=== PATIENT | female | born 1985 | race African-American/Black ===

== ENCOUNTER 2018-01-06 18:38 | Inpatient (IN) | payer OTHER, MEDICARE ==
[~2018-01-06] VITALS: Ht 157.5 cm; Wt 60.3 kg
[2018-01-06 18:52] VITALS: BP 126/74; O2SAT 100
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
[2018-01-06] MEDS ORDERED: SODIUM CHLOR 0.9% 1000 ML INJ 1,000 ML IV ONE (19:45)
[2018-01-06] MEDS ORDERED: LABETALOL HCL 100 MG/20 ML VIAL IV PUSH ONE ×2 (19:45→20:45)
[2018-01-06 20:00] VITALS: BP 117/62; PULSE 158; RESP 16; O2SAT 100
[2018-01-06 20:15] VITALS: PULSE 138
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
[2018-01-06 20:29] LABS: AUTOMATED NEUTROPHIL # 4.2 TH/MM3 (1.8-7.7); BASOPHIL % 0.9 % (0.0-2.0); HEMATOCRIT 31.6 % (35.0-46.0); HEMOGLOBIN 10.8 GM/DL (11.6-15.3); LYMPHOCYTE # 0.5 TH/MM3 (1.0-4.8); MEAN CELL VOLUME 99.9 FL (80.0-100.0); MEAN CORPUSCULAR HEMOGLOBIN 34.2 PG (27.0-34.0); MEAN CORPUSCULAR HGB CONC 34.3 % (32.0-36.0); MONO % 1.9 % (0.0-8.0); MONOCYTE # 0.1 TH/MM3 (0-0.9); NEUT % 87.2 % (16.0-70.0); PLATELET COUNT 296 TH/MM3 (150-450); RED BLOOD COUNT 3.16 MIL/MM3 (4.00-5.30); RED CELL DISTRIBUTION WIDTH 16.6 % (11.6-17.2); WHITE BLOOD COUNT 4.8 TH/MM3 (4.0-11.0)
[2018-01-06 20:35] LABS: ALBUMIN 3.2 GM/DL (3.4-5.0); AST (GOT) 28 U/L (15-37); BICARBONATE 20.7 MEQ/L (21.0-32.0); BLOOD UREA NITROGEN 57 MG/DL (7-18); CALCIUM 8.9 MG/DL (8.5-10.1); CHLORIDE 107 MEQ/L (98-107); CREATININE 3.85 MG/DL (0.50-1.00); GLOMERULAR FILTRATION RATE 16 ML/MIN (>89); GLUCOSE,RANDOM 187 MG/DL (74-106); MAGNESIUM 1.5 MG/DL (1.5-2.5); SODIUM (NA) 138 MEQ/L (136-145)
[2018-01-06 20:36] LABS: ALT (GPT) 28 U/L (10-53)
[2018-01-06 20:40] LABS: INTERNATIONAL NORMALIZED RATIO 1.1 RATIO; PROTHROMBIN TIME - PATIENT 11.3 SEC (9.8-11.6)
[2018-01-06 20:45] LABS: ALKALINE PHOSPHATASE 64 U/L (45-117); TOTAL BILIRUBIN ADULT 0.7 MG/DL (0.2-1.0); TOTAL PROTEIN 7.6 GM/DL (6.4-8.2); TROPONIN I LESS THAN 0.02 NG/ML (0.02-0.05)
[2018-01-06 21:07] LABS: CORRECTED NUCLEATED RBC 3 /100 WBC (0-0); LYMPHOCYTES 7 % (9-44); MONOCYTES 3 % (0-8); NEUTROPHIL # MANUAL DIFF 4.3 TH/MM3 (1.8-7.7); NUCLEATED RED BLOOD CELL 3 (0-0); POLYS (SEG NEUTROPHILS) 90 % (16-70)
[2018-01-06 21:23] VITALS: PULSE 133
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
[2018-01-06] MEDS ORDERED: MAGNESIUM HYDROXIDE SUSP 30 ML CUP PO PRN (21:30)
[2018-01-06] MEDS ORDERED: ACETAMINOPHEN 325 MG TAB PO PRN (21:30)
[2018-01-06] MEDS ORDERED: SODIUM CHLORIDE 0.9% FLUSH 10 ML FLUSH IV FLUSH PRN (21:30)
[2018-01-06] MEDS ORDERED: SENNOSIDES 8.6 MG TAB PO PRN (21:30)
[2018-01-06] MEDS ORDERED: MORPHINE SULFATE 2 MG/ML SYRINGE IV PUSH PRN (21:30)
[2018-01-06] MEDS ORDERED: BISACODYL 10 MG SUPP RECTAL PRN (21:30)
[2018-01-06] MEDS ORDERED: METOCLOPRAMIDE HCL 10 MG/2 ML VIAL IV PUSH PRN (21:30)
[2018-01-06] MEDS ORDERED: LACTULOSE SYRUP 20 GM/30 ML CUP PO PRN (21:30)
[2018-01-06] MEDS ORDERED: PLAQ200T PO (21:35)
[2018-01-06] MEDS ORDERED: CALC0.25 PO (21:35)
[2018-01-06] MEDS ORDERED: LIPI40TA PO (21:35)
[2018-01-06] MEDS ORDERED: FAMO1TAB37 PO (21:35)
[2018-01-06] MEDS ORDERED: LOSA100T2 PO (21:35)
[2018-01-06] MEDS ORDERED: SPIR25 PO (21:35)
[2018-01-06] MEDS ORDERED: PRED5TAB PO (21:35)
[2018-01-06] MEDS ORDERED: IMUR50TA5 PO (21:35)
[2018-01-06 21:59] VITALS: BP 117/62; PULSE 132; RESP 16
[2018-01-06] MEDS: ESMOLOL DRIP INJ PREMIX 250 ML IV PRN (22:20)
[2018-01-06] MEDS: SODIUM CHLOR 0.9% 1000 ML INJ 1,000 ML IV SCH (22:21)
[2018-01-06 22:27] LABS: ACETAMINOPHEN LESS THAN 2.0 MCG/ML (10.0-30.0)
[2018-01-07] VITALS (12 sets, daily range): BP systolic 102–128; BP diastolic 57–78; PULSE 69–126; RESP 12–20; TEMP 97.8–98.4; O2SAT 99–100
[2018-01-07 00:43] LABS: BACTERIA, URINE RARE /hpf; BILIRUBIN, URINE NEG (NEG); BLOOD, URINE NEG (NEG); GLUCOSE,URINE NEG (NEG); KETONE, URINE NEG (NEG); NITRITE,URINE NEG (NEG); SQUAMOUS EPITHELIAL CELL URINE 2 /hpf (0-5); URINE COLOR YELLOW (YELLW/STRAW); URINE LEUKOCYTE ESTERASE NEG (NEG)
[2018-01-07] MEDS ORDERED: CHLORHEXIDINE GLUCONATE 2 % 1 PACK (2 CLOTHS)(extra cloths) TOPICAL PRN (01:45)
[2018-01-07] MEDS: SODIUM CHLOR 0.9% 1000 ML INJ 1,000 ML IV SCH (02:17)
[2018-01-07] MEDS: CHLORHEXIDINE GLUCONATE 2 % 1 PACK (2 CLOTHS)(taper/protocol) TOPICAL SCH (03:25)
[2018-01-07] MEDS: ESMOLOL DRIP INJ PREMIX 250 ML IV PRN ×2 (03:34→08:16)
[2018-01-07] MEDS ORDERED: METOPROLOL TARTRATE 5 MG/5 ML VIAL IV PUSH PRN (04:00)
[2018-01-07 07:11] LABS: GLOMERULAR FILTRATION RATE 18 ML/MIN (>89)
[2018-01-07 07:22] LABS: ALBUMIN 2.6 GM/DL (3.4-5.0); ALKALINE PHOSPHATASE 56 U/L (45-117); ALT (GPT) 20 U/L (10-53); AST (GOT) 18 U/L (15-37); BICARBONATE 22.4 MEQ/L (21.0-32.0); BLOOD UREA NITROGEN 53 MG/DL (7-18); CALCIUM 8.1 MG/DL (8.5-10.1); CHLORIDE 116 MEQ/L (98-107); CREATININE 3.46 MG/DL (0.50-1.00); GLUCOSE,RANDOM 149 MG/DL (74-106); SODIUM (NA) 146 MEQ/L (136-145); TOTAL BILIRUBIN ADULT 0.5 MG/DL (0.2-1.0); TOTAL PROTEIN 5.8 GM/DL (6.4-8.2); TROPONIN I 0.03 NG/ML (0.02-0.05)
[2018-01-07] MEDS: DOCUSATE SODIUM 50 MG/SENNA 8.6 MG TAB PO SCH ×2 (08:15→21:00)
[2018-01-07] MEDS: predniSONE 5 MG TAB PO SCH (08:15)
[2018-01-07] MEDS: SODIUM CHLORIDE 0.9% FLUSH 10 ML FLUSH IV FLUSH SCH ×2 (09:00→22:15)
[2018-01-07] MEDS: HYDROXYCHLOROQUINE SULFATE 200 MG TAB PO SCH (09:00)
[2018-01-07 09:48] LABS: BASOPHIL % 0.2 % (0.0-2.0); EOSINOPHIL % 0.4 % (0.0-4.0); HEMATOCRIT 24.1 % (35.0-46.0); LYMPH % 18.6 % (9.0-44.0); LYMPHOCYTE # 1.6 TH/MM3 (1.0-4.8); MEAN CELL VOLUME 105.6 FL (80.0-100.0); MEAN CORPUSCULAR HGB CONC 35.1 % (32.0-36.0); MEAN PLATELET VOLUME 8.1 FL (7.0-11.0); MONO % 9.3 % (0.0-8.0); MONOCYTE # 0.8 TH/MM3 (0-0.9); NEUT % 71.5 % (16.0-70.0); PLATELET COUNT 248 TH/MM3 (150-450); RED BLOOD COUNT 2.28 MIL/MM3 (4.00-5.30); RED CELL DISTRIBUTION WIDTH 16.6 % (11.6-17.2); WHITE BLOOD COUNT 8.3 TH/MM3 (4.0-11.0)
[2018-01-07 09:51] LABS: HEMOGLOBIN 8.5 GM/DL (11.6-15.3)
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
[2018-01-07] MEDS: azaTHIOprine 50 MG TAB PO SCH (10:37)
[2018-01-07] MEDS: CALCITRIOL 0.25 MCG CAP PO SCH (10:37)
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
[2018-01-07] MEDS: LOSARTAN 50 MG TAB PO SCH (11:15)
--- NOTE | 2018-01-07 13:41 | EKG ---
Date Performed: 01/06/2018 Time Performed: 18:59:23 PTAGE: 32 years EKG: SUPRAVENTRICULAR TACHYCARDIA RATE 148 POOR INITIAL ANTERIOR FORCES, MAY BE NORMAL VARIANT C LINICAL CORRELATION RECOMMENDED. ABNORMAL ECG NO PREVIOUS TRACING DOCTOR: Slade Moreno Interpretating Date/Time 01/07/2018 13:39:53
--- NOTE | 2018-01-07 14:37 | ECHRPT ---
Indication: ATRIAL FIB CONCLUSIONS The left ventricular systolic function is normal with an estimated ejection fraction in the range of 60-65%. Normal left ventricular size. Wall thickness is normal. Trace mitral valve regurgitation. There is trace tricuspid valve regurgitation. The estimated pulmonary arterial pressure is 38.1 mmHg. BP: 114 / 66 HR: 82 Rhythm: Sinus MEASUREMENTS (Male / Female) Normal Values Technical Quality:Good 2D ECHO LV Diastolic Diameter PLAX 4.1 cm 4.2 - 5.9 / 3.9 - 5.3 cm LV Systolic Diameter PLAX 2.9 cm IVS Diastolic Thickness 1.0 cm 0.6 - 1.0 / 0.6 - 0.9 cm LVPW Diastolic Thickness 1.0 cm 0.6 - 1.0 / 0.6 - 0.9 cm LV Relative Wall Thickness 0.5 RV Internal Dim ED PLAX 2.8 cm LVOT Diameter 2.0 cm LA Systolic Diameter LX 3.1 cm 3.0 - 4.0 / 2.7 - 3.8 cm LV Ejection Fraction MOD 4C 63.6 % LV Cardiac Index MOD 4C 2968.3 cm/minm LV Ejection Fraction 4C AL 64.6 % LV Cardiac Index 4C AL 3100.0 cm/minm M-MODE Aortic Root Diameter MM 2.0 cm LA Systolic Diameter MM 3.5 cm LA Ao Ratio MM 1.8 AV Cusp Separation MM 2.0 cm DOPPLER AV Peak Velocity 115.0 cm/s AV Peak Gradient 5.3 mmHg LVOT Peak Velocity 99.2 cm/s LVOT Peak Gradient 3.9 mmHg AV Area Cont Eq pk 2.7 cm MV Area PHT 3.3 cm Mitral E Point Velocity 99.7 cm/s Mitral A Point Velocity 58.7 cm/s Mitral E to A Ratio 1.7 LV E' Lateral Velocity 10.6 cm/s Mitral E to LV E' Lateral Ratio 9.4 LV E' Septal Velocity 10.2 cm/s Mitral E to LV E' Septal Ratio 9.8 TR Peak Velocity 265.0 cm/s TR Peak Gradient 28.1 mmHg Right Atrial Pressure 10.0 mmHg Pulmonary Artery Systolic Pressu 38.1 mmHg Right Ventricular Systolic Press 38.1 mmHg PV Peak Velocity 95.0 cm/s PV Peak Gradient 3.6 mmHg FINDINGS LEFT VENTRICLE The left ventricular systolic function is normal with an estimated ejection fraction in the range of 60-65%. Normal left ventricular size. Wall thickness is normal. RIGHT VENTRICLE Normal right ventricular size and systolic function. LEFT ATRIUM The left atrial size is normal. RIGHT ATRIUM The right atrial size is normal. ATRIAL SEPTUM Normal atrial septal thickness without atrial level shunting by limited color doppler interrogation. AORTA The aortic root and proximal ascending aorta are normal in size on limited imaging. MITRAL VALVE Structurally normal mitral valve. Trace mitral valve regurgitation. AORTIC VALVE Trileaflet aortic valve. No aortic valve stenosis or regurgitation. TRICUSPID VALVE Structurally normal tricuspid valve. There is trace tricuspid valve regurgitation. The estimated pulmonary arterial pressure is 38.1 mmHg. PULMONARY VALVE No pulmonary valve regurgitation or stenosis. VESSELS The inferior vena cava is normal in size. PERICARDIUM No pericardial effusion. Hiro Tovar MD, FACC (Electronically Signed) Final Date:07 Jan 2018 14:36
[2018-01-07] MEDS: ACETAMINOPHEN/HYDROcodone 325 MG/5 MG TAB PO PRN (15:08)
[2018-01-07] MEDS: ATORVASTATIN 40 MG TAB PO SCH (22:06)
[2018-01-07] MEDS: DILTIAZEM HCL 30 MG TAB PO SCH (22:07)
[2018-01-08] VITALS (9 sets, daily range): BP systolic 107–134; BP diastolic 61–75; PULSE 62–84; RESP 18–21; TEMP 98.4–98.8; O2SAT 97–99
--- NOTE | 2018-01-08 01:18 | RADRPT ---
EXAM DATE: 01/08/2018 1:09 AM EDT AGE/SEX: 32 years / Female INDICATIONS: Increased BUN and Creatinine. CLINICAL DATA: This is the patient's initial encounter. Patient reports that signs and symptoms have been present for 1 day and indicates a pain score of 0/10. MEDICAL/SURGICAL HISTORY: Hypertension. Hypercholesterolemia. Lupus. Renal failure. Cesarea n section. COMPARISON: No prior exams available for comparison. No external comparison. MEASUREMENTS: Right Kidney:__12.6 x 6.3 x 5.7 cm cm Left Kidney:__9.7 x 5.0 x 6.2 cm cm FINDINGS: Right Kidney: Multiple cysts are present in the right kidney the largest on measures 3.9 cm in size. There is no hydronephrosis. There is loss of corticomedullary differentiation. Left Kidney: Multiple simple cysts are present in the left kidney without any hydronephrosis the larg est one measures 2.1 cm in size. There is loss of corticomedullary differentiation. Bladder: Within normal limits given the degree of distension. CONCLUSION: 1. Bilateral renal cysts without hydronephrosis. Loss of corticomedullary differentiation could be s een with medical renal disease. Electronically signed by: Michael Ellis MD 01/08/2018 1:17 AM EDT
[2018-01-08] MEDS: CHLORHEXIDINE GLUCONATE 2 % 1 PACK (2 CLOTHS)(taper/protocol) TOPICAL SCH (04:00)
[2018-01-08 05:22] LABS: HEMOGLOBIN 8.1 GM/DL (11.6-15.3); MEAN CELL VOLUME 103.3 FL (80.0-100.0); MEAN CORPUSCULAR HEMOGLOBIN 36.4 PG (27.0-34.0); MEAN CORPUSCULAR HGB CONC 35.2 % (32.0-36.0); PLATELET COUNT 218 TH/MM3 (150-450); RED BLOOD COUNT 2.22 MIL/MM3 (4.00-5.30); RED CELL DISTRIBUTION WIDTH 16.6 % (11.6-17.2); WHITE BLOOD COUNT 6.7 TH/MM3 (4.0-11.0)
[2018-01-08 05:46] LABS: COMPLEMENT C4 19 MG/DL (10-40)
[2018-01-08 05:56] LABS: BICARBONATE 21.9 MEQ/L (21.0-32.0); CALCIUM 8.5 MG/DL (8.5-10.1); CREATININE 3.07 MG/DL (0.50-1.00); MAGNESIUM 1.2 MG/DL (1.5-2.5)
[2018-01-08] MEDS: DILTIAZEM HCL 30 MG TAB PO SCH ×2 (08:51→21:19)
[2018-01-08] MEDS: DOCUSATE SODIUM 50 MG/SENNA 8.6 MG TAB PO SCH ×2 (08:51→21:19)
[2018-01-08] MEDS: predniSONE 5 MG TAB PO SCH (08:51)
[2018-01-08] MEDS: azaTHIOprine 50 MG TAB PO SCH (08:51)
[2018-01-08] MEDS: LOSARTAN 50 MG TAB PO SCH (08:51)
[2018-01-08] MEDS: HYDROXYCHLOROQUINE SULFATE 200 MG TAB PO SCH (08:51)
[2018-01-08] MEDS: CALCITRIOL 0.25 MCG CAP PO SCH (08:51)
[2018-01-08] MEDS: SODIUM CHLORIDE 0.9% FLUSH 10 ML FLUSH IV FLUSH SCH ×2 (08:51→21:20)
[2018-01-08] MEDS ORDERED: MAGNESIUM SULFATE 1 GM PREMIX 100 ML IV ONE (10:00)
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
--- NOTE | 2018-01-08 12:07 | HHI.NPPN ---
Subjective History of Present Illness 32 year old Black female with SLE CKD Review of Systems General Constitutional: Fatigue Objective Data Data 01/08/18 01/09/18 19:00 07:00 Intake Total 100 ml Balance 100 ml IV Total 100 ml Vital Signs Date Time Temp Pulse Resp B/P (MAP) Pulse Ox O2 Delivery O2 Flow Rate FiO2 01/08/18 09:33 Room Air 01/08/18 08:35 98.4 64 20 134/70 (91) 98 01/08/18 04:00 98.4 62 20 121/75 (90) 99 01/08/18 04:00 64 01/08/18 00:00 Room Air 01/08/18 00:00 98.6 69 20 107/63 (78) 98 01/08/18 00:00 66 01/07/18 21:30 Room Air 01/07/18 20:00 73 01/07/18 20:00 97.8 69 20 105/57 (73) 99 01/07/18 16:00 72 01/07/18 14:05 98.4 70 20 122/69 (86) 100 01/07/18 14:00 117 -: 01/08/18 0430 01/08/18 0430 Physical Exam General Appearance: Well Developed, Well Nourished Neck Neck Exam: Neck Supple Pulmonary Resp Exam: Clear Bilaterally, Breath Sounds Equal Cardiology CV Exam: Regular, Normal Sinus Rhythm, Good Perfusion Gastrointestinal/Abdomen GI Exam: Soft, Non-Tender, Bowel Sounds Present Extremeties Extremities Exam: No Edema Neurologic Neuro Exam: Alert, Awake Assessment/Plan Problem List: (1) CKD (chronic kidney disease) ICD Codes: N18.9 - Chronic kidney disease, unspecified Plan: Patient has advanced chronic kidney disease followed by her commercial stripper Dr. Annalee Gabriel She will continue with prednisone, azathioprine, Plaquenil, losartan K 5.3 Veltassa 8.4 gm ordered She has been told about kidney transplant options and dialysis by her commercial stripper, check RACHAEL, serum complement.C3 Low based on biopsy her commercial stripper told her not a candidate for Cytoxan once stable dc to her Bench Hand Machine to follow We will continue to monitor while she is at the hospital. she is interested in ABO blood type as may list for kidney transplant. (2) Lupus (systemic lupus erythematosus) ICD Codes: M32.9 - Systemic lupus erythematosus, unspecified Plan: Patient has been treated as above on prednisone, azathioprine and Plaquenil (3) A-fib ICD Codes: I48.91 - Unspecified atrial fibrillation Plan: Converted back to sinus rhythm cardiology is following (4) Hypertension ICD Codes: I10 - Essential (primary) hypertension Plan: on losartan 100 mg daily Problem Qualifiers (1) CKD (chronic kidney disease): Qualified Codes: N18.4 - Chronic kidney disease, stage 4 (severe) (2) Hypertension: Qualified Codes: I10 - Essential (primary) hypertension Desiree Funes MD January 08, 2018 12:07
[2018-01-08] MEDS ORDERED: PATIROMER CALCIUM SORBITEX 8.4 GM PKT PO ONE (12:15)
--- NOTE | 2018-01-08 13:00 | PD.CARD.PN ---
Subjective Subjective Remarks Denies palpitations, CP, dyspnea, dizziness. Objective Medications Item Value Date Time Atorvastatin 40 mg 01/07/182099 Calcium HS/PO 01/07/182205 (Lipitor) Diltiazem HCl 30 mg 01/07/182099 (Cardizem) BID/PO 01/08/18 0851 Losartan Potassium 100 mg 01/07/18 1115 (Cozaar) DAILY/PO 01/08/18 0851 Current Medications Medications (Trade) Dose Ordered Sig/Tamara Route Start Time Stop Time Status Last Admin Esmolol HCl/ Sodium Chloride 250 ml @ 0 mls/hr TITRATE PRN IV 01/06/18 21:15 01/07/18 08:16 (NS Flush) 2 ml UNSCH PRN IV FLUSH 01/06/18 21:30 (NS Flush) 2 ml BID IV FLUSH 01/07/18 09:00 01/08/18 08:51 (Reglan Inj) 5 mg Q6H PRN IV PUSH 01/06/18 21:30 (Tylenol) 650 mg Q6H PRN PO 01/06/18 21:30 ([place] 5-325 Mg) 1 tab Q4H PRN PO 01/06/18 21:30 01/07/18 15:08 (Morphine Inj) 2 mg Q3H PRN IV PUSH 01/06/18 21:30 (Tania-Colace) 1 tab BID PO 01/07/18 09:00 01/08/18 08:51 (Milk Of Magnesia Liq) 30 ml Q12H PRN PO 01/06/18 21:30 (Senokot) 17.2 mg Q12H PRN PO 01/06/18 21:30 (Dulcolax Supp) 10 mg DAILY PRN RECTAL 01/06/18 21:30 (Lactulose Liq) 30 ml DAILY PRN PO 01/06/18 21:30 (Lipitor) 40 mg HS PO 01/07/18 21:00 01/07/18 22:06 (Imuran) 150 mg DAILY PO 01/07/18 09:00 01/08/18 08:51 (Plaquenil) 200 mg DAILY PO 01/07/18 09:00 01/08/18 08:51 (Deltasone) 5 mg DAILY PO 01/07/18 09:00 01/08/18 08:51 (Misc Nursing Information) Patient in critical care unit? Ass... [id number] .XX 01/07/18 01:45 01/07/18 01:45 (Chlorhexidine 2% Cloth) 3 pack DAILY@04 TOPICAL 01/07/18 04:00 01/11/18 04:01 (Chlorhexidine 2% Cloth) 3 pack UNSCH PRN TOPICAL 01/07/18 01:45 01/12/18 01:38 (Lopressor Inj) 5 mg Q5M PRN IV PUSH 01/07/18 04:00 01/07/18 03:54 (Rocaltrol) 0.25 mcg DAILY PO 01/07/18 10:00 01/08/18 08:51 (Cardizem) 30 mg BID PO 01/07/18 21:00 01/08/18 08:51 (Cozaar) 100 mg DAILY PO 01/07/18 11:15 01/08/18 08:51 Vital Signs / I&O Vital Signs Date Time Temp Pulse Resp B/P (MAP) Pulse Ox O2 Delivery O2 Flow Rate FiO2 01/08/18 09:33 Room Air 01/08/18 08:35 98.4 64 20 134/70 (91) 98 01/08/18 04:00 98.4 62 20 121/75 (90) 99 01/08/18 04:00 64 01/08/18 00:00 Room Air 01/08/18 00:00 98.6 69 20 107/63 (78) 98 01/08/18 00:00 66 01/07/18 21:30 Room Air 01/07/18 20:00 73 01/07/18 20:00 97.8 69 20 105/57 (73) 99 01/07/18 16:00 72 01/07/18 14:05 98.4 70 20 122/69 (86) 100 01/07/18 14:00 117 I/O 01/07/18 01/07/18 01/07/18 01/08/18 01/08/18 01/08/18 07:00 15:00 23:00 07:00 15:00 23:00 Intake Total 450 ml 1480 ml 100 ml Output Total 1600 ml Balance 450 ml -120 ml 100 ml Intake Oral 0 ml 1480 ml IV Total 450 ml 100 ml Output Urine Total 1600 ml # Voids 3 # Bowel Movements 0 0 Physical Exam GENERAL: Well developed, well nourished. No acute distress. HEENT: Jugular venous pressure is normal. CHEST: Lungs clear to auscultation bilaterally. Unlabored respiratory effort. CARDIAC: Regular rate and rhythm without S3, S4, or murmur. ABDOMEN: Soft, nontender, no hepatosplenomegaly. Bowel sounds present. EXTREMITIES: No clubbing, cyanosis, or edema. Laboratory Laboratory Tests Test 01/08/18 04:30 White Blood Count 6.7 TH/MM3 Red Blood Count 2.22 MIL/MM3 Hemoglobin 8.1 GM/DL Hematocrit 23.0 % Mean Corpuscular Volume 103.3 FL Mean Corpuscular Hemoglobin 36.4 PG Mean Corpuscular Hemoglobin Concent 35.2 % Red Cell Distribution Width 16.6 % Platelet Count 218 TH/MM3 Mean Platelet Volume 8.0 FL Blood Urea Nitrogen 40 MG/DL Creatinine 3.07 MG/DL Random Glucose 96 MG/DL Calcium Level 8.5 MG/DL Magnesium Level 1.2 MG/DL Sodium Level 145 MEQ/L Potassium Level 5.3 MEQ/L Chloride Level 116 MEQ/L Carbon Dioxide Level 21.9 MEQ/L Anion Gap 7 MEQ/L Estimat Glomerular Filtration Rate 21 ML/MIN Complement C3 72 MG/DL Complement C4 19 MG/DL Imaging Last 24 hours Impressions Renal Ultrasound 01/08/18 0000 Signed Impressions: CONCLUSION: 1. Bilateral renal cysts without hydronephrosis. Loss of corticomedullary diff erentiation could be seen with medical renal disease. Assessment and Plan Problem List: (1) Paroxysmal supraventricular tachycardia ICD Codes: I47.1 - Supraventricular tachycardia Status: Acute Plan: Stable overnight. No further SVT. Tolerating low dose diltiazem. Recommend continue diltiazem. OK to discharge home from cardiac standpoint, f/ u with her pmo lead in [place]. Recommend she consider ablation procedure. (2) Hypertension ICD Codes: I10 - Essential (primary) hypertension Plan: Stable. Normotensive. Code Status full code Discussed Condition With patient Problem Qualifiers (1) Hypertension: Qualified Codes: I10 - Essential (primary) hypertension Branden Mejia MD January 08, 2018 13:00
[2018-01-08] MEDS: ATORVASTATIN 40 MG TAB PO SCH (21:19)
[2018-01-08] MEDS: ACETAMINOPHEN/HYDROcodone 325 MG/5 MG TAB PO PRN (21:19)
[2018-01-09] VITALS: BP 109/58; PULSE 59; PULSE 66; RESP 20; TEMP 97.6; O2SAT 95
[2018-01-09] MEDS: CHLORHEXIDINE GLUCONATE 2 % 1 PACK (2 CLOTHS)(taper/protocol) TOPICAL SCH (03:22)
[2018-01-09 04:00] VITALS: BP 128/84; PULSE 60; PULSE 70; RESP 20; TEMP 98; O2SAT 99
[2018-01-09 06:52] LABS: AUTOMATED NEUTROPHIL # 3.7 TH/MM3 (1.8-7.7); BASOPHIL % 0.6 % (0.0-2.0); EOSINOPHIL # 0.1 TH/MM3 (0-0.4); EOSINOPHIL % 1.6 % (0.0-4.0); HEMATOCRIT 24.6 % (35.0-46.0); HEMOGLOBIN 8.7 GM/DL (11.6-15.3); LYMPH % 30.3 % (9.0-44.0); LYMPHOCYTE # 1.8 TH/MM3 (1.0-4.8); MEAN CELL VOLUME 106.3 FL (80.0-100.0); MEAN CORPUSCULAR HEMOGLOBIN 37.8 PG (27.0-34.0); MEAN CORPUSCULAR HGB CONC 35.5 % (32.0-36.0); MEAN PLATELET VOLUME 7.8 FL (7.0-11.0); MONO % 6.2 % (0.0-8.0); MONOCYTE # 0.4 TH/MM3 (0-0.9); NEUT % 61.3 % (16.0-70.0); PLATELET COUNT 215 TH/MM3 (150-450); RED BLOOD COUNT 2.31 MIL/MM3 (4.00-5.30); RED CELL DISTRIBUTION WIDTH 16.7 % (11.6-17.2)
[2018-01-09 07:07] LABS: ALBUMIN 2.6 GM/DL (3.4-5.0); BICARBONATE 22.6 MEQ/L (21.0-32.0); CALCIUM 8.8 MG/DL (8.5-10.1); CREATININE 3.01 MG/DL (0.50-1.00); MAGNESIUM 1.3 MG/DL (1.5-2.5); PHOSPHORUS 4.6 MG/DL (2.5-4.9)
[2018-01-09 08:00] VITALS: BP 121/79; PULSE 62; PULSE 66; RESP 17; TEMP 98.2; O2SAT 100
[2018-01-09] MEDS: SODIUM CHLORIDE 0.9% FLUSH 10 ML FLUSH IV FLUSH SCH (08:05)
[2018-01-09] MEDS: LOSARTAN 50 MG TAB PO SCH (08:06)
[2018-01-09] MEDS: CALCITRIOL 0.25 MCG CAP PO SCH (08:06)
[2018-01-09] MEDS: predniSONE 5 MG TAB PO SCH (08:07)
[2018-01-09] MEDS: HYDROXYCHLOROQUINE SULFATE 200 MG TAB PO SCH (08:07)
[2018-01-09] MEDS: DOCUSATE SODIUM 50 MG/SENNA 8.6 MG TAB PO SCH (08:07)
[2018-01-09] MEDS: DILTIAZEM HCL 30 MG TAB PO SCH (08:07)
[2018-01-09] MEDS: azaTHIOprine 50 MG TAB PO SCH (08:08)
[2018-01-09] MEDS: MAGNESIUM SULFATE 1 GM PREMIX 100 ML IV SCH ×2 (08:52→09:52)
[2018-01-09] MEDS ORDERED: DILT31TA PO (08:55)
[2018-01-09] MEDS ORDERED: MAGN400T2 PO (08:55)
[2018-01-09] MEDS ORDERED: MAGNESIUM OXIDE 400 MG TAB PO SCH (09:00)
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
== END 2018-01-09 11:04 | disposition home or self-care (01) | DRG 309 ==
LOC: NEPE 18:38 → NEDA 21:13 → HIMW 01-07 00:50 → N04A 01-07 15:54
PROVIDERS: ADMIT Internal Medicine; ATTEND Internal Medicine
DX: I48.91 Unspecified atrial fibrillation (principal); N18.4 Chronic kidney disease, stage 4 (severe); M32.9 Systemic lupus erythematosus, unspecified; N17.9 Acute kidney failure, unspecified; E83.42 Hypomagnesemia; I47.1 Supraventricular tachycardia; I12.9 Hypertensive chronic kidney disease with stage 1 through stage 4 chronic kidney disease, or unspecified chronic kidney disease; E87.6 Hypokalemia; D64.9 Anemia, unspecified; G47.30 Sleep apnea, unspecified; M25.562 Pain in left knee; M25.561 Pain in right knee; V43.62XA Car passenger injured in collision with other type car in traffic accident, initial encounter
CPT/HCPCS: 71045; 73560; 76775; 80048; 80053; 80069; 80307; 81001; 82550; 83690; 83735; 83880; 84443; 84484; 84702; 85007; 85025; 85027; 85610; 85730; 86038; 86039; 86160; 86900; 86901; 87641; 93005; 93306; 96361; 96374; 96376; J3475; J7030; J7500; J7512